=== PATIENT | female | born 1960 | race Caucasian/White ===

== ENCOUNTER 2023-05-30 10:00 | Outpatient (AMB) | payer OTHER, SELFPAY ==
--- NOTE | 2023-05-30 10:02 | MHC.PC.OV ---
Vital Signs 05/30/23 10:04 Height 5 ft 2 in Weight 141 lb 8 oz BMI 25.9 BP 128/78 Blood Pressure Location Lt brachial Position Sitting Pulse 86 Pulse Source Pulse Oximeter Pulse Oximetry (%) 98 Oxygen Delivery Method Room Air Intake Visit Reasons: Reestablish care/Asthma Intake Note: pt is here for re-establishing care, concerned about her asthma Counter Former Required: No Accompanied by: Self / Same As Patient Allergies penicillin V Allergy (Unknown, Verified 05/30/23 10:16) hives Penicillins Allergy (Unknown, Verified 05/30/23 10:16) HIVES Sulfa (Sulfonamide Antibiotics) Allergy (Unknown, Verified 05/30/23 10:16) HIVES, rash Medication List - Last Reconciled 05/30/23 by CAMILLA Mendoza No Known Home Meds Tobacco use date assessed: 05/30/23 Fall risk assessment: No Falls in past year Last assessed Fall Risk: 05/30/23 Dental Screening Dental Screen Date: 05/30/23 Did you have a dental visit in the last 12 months?: No Did you have a dental problem in the last 6 months where you did not have access to dental care?: No Was dental information given to patient?: Patient declined HPI Reestablish care/Asthma HPI Details Pt is here to reestablish care. She has a hx of asthma which is well-controlled currently. Pt would like an albuterol inhaler as needed, will send. Denies fever, chills, and chest pain. Refuses labs, mammo, pap, and colon screen. HPI Comments History of Present Illness Details asthma: pt reports it is well controlled, currently. Wanted albuterol for just in case as well as prednisone. Pt refuses mammos, colon screens, bone densities. Pt reports that she refuses any blood draws [facility] Surgical History (Updated 05/30/23 @ 10:10 by Emeterio Wu CMA) History of ankle surgery Social History (Updated 05/30/23 @ 10:11 by Emeterio Wu CMA) Housing: House Alcohol intake: current Alcohol intake frequency: does not drink Patient Tobacco Use Status: Never used Tobacco e-Cigarette/Vaping Use: Never Used service: No Current occupational status: unemployed Cognitive needs: No Hearing needs: No Vision needs: Yes Questionnaire Thrive Questionnaire Date Thrive assessed: 05/30/23 I am a: Patient What is your living situation today?: I have a steady place to live Within the past 12 months, did the food you bought not last and you didn't have the money to get more?: Never true Within the past 12 months, did you worry whether your food would run out before you got money to buy more?: Never true Do you have trouble paying for medicines?: No Do you have trouble getting transportation to medical appointments?: No Do you have trouble paying your heating and electricity bill?: No Do you have trouble taking care of your child, family member or friend?: No Do you have trouble with day-to-day activities such as bathing, preparing meals, shopping, managing finances, etc.?: No Are you currently unemployed and looking for a job?: No Are you interested in more education?: No Please select the resources that you would like help with: None Currently or been in a relationship where the following occur: no concerns reported THRIVE Score: 0 AUDIT C Alcohol Use Questionnaire (AUDIT-C) 1. How often do you have a drink containing alcohol?: Never 3. How often do you have six or more drinks on one occasion?: Never Total Score: 0 Score Reviewed/Action Taken: Yes MARTHA-7 AMB Questionnaire MARTHA-7 Date MARTHA - 7 assessed: 05/30/23 Source: Developed by Drs. Emre Hernandez, Bebe Smith, Jarred Faust and colleagues, with an educational shawn from [employer]. Review of Systems Const Reports as per HPI Physical exam (Primary Care) Vital Signs: Last Vital Signs Pulse 86 05/30/23 10:04 BP 128/78 05/30/23 10:04 Pulse Ox 98 05/30/23 10:04 Oxygen Delivery Method Room Air 05/30/23 10:04 BMI result Body Mass Index 25.9 Tobacco/Smoking Status: Tobacco use Status Tobacco use date assessed 05/30/23 05/30/23 10:14 Patient Tobacco Use Status Never used Tobacco 05/30/23 10:14 e-Cigarette/Vaping Use Never Used 05/30/23 10:14 Thrive Assessment: Date of Thrive Assessment Date Thrive assessed 05/30/23 05/30/23 10:20 Currently or been in a relationship where the following occur: no concerns reported Const General: cooperative Orientation/consciousness: patient oriented x3 Resp Effort & Inspection: normal respiratory effort Auscultation: clear to auscultation bilaterally Cardio Rate: regular rate Rhythm: regular rhythm Heart sounds: S1 normal heart sound present and S2 normal heart sound present Neuro General: patient oriented x3 Psych Appearance: grossly normal Mental Status: mental status grossly normal Speech and movement: Normal speech and movement present Affect: normal affect Attitude: cooperative Thought process: Normal thought process present Thought content: Normal thought content present Insight: Good insight present (Psych) Judgement: Good judgement present (Psych) Assessment and Plan Assessment & Plan (1) Asthma: Code(s): J45.909 - Unspecified asthma, uncomplicated Plan: sent albuterol for prn, and also prednisone for any really bad asthma attacks. Pt is hesitant to start any other meds, get any type of imaging, denies all lab draw, mammos, bone density, colon screen. Plan The patient agreed to the use of a medical records supervisor for this encounter. Scribed for QUEENIE Doherty by Lulu Mccoy medical records supervisor, on 05/30/2023 at 10:20 EST. Medications: New albuterol sulfate 90 mcg/actuation (Ventolin HFA) 2 puffs inhalation Q6H PRN 8.5 grams 1RF shortness of breath or wheezing prednisone 20 mg PO DAILY 5 days 5 tabs 1RF Coding Level of Care Code New Pt Level 3 (58258) Diagnoses Asthma J45.909
[2023-05-30 10:04] VITALS: BP 128/78; PULSE 86; O2SAT 98; BMI 25.9
== END 2023-05-30 16:17 | disposition home or self-care (01) ==
PROVIDERS: PCP Nurse Practitioner Family; Visit Provider Nurse Practitioner Family
DX: J45.909 Unspecified asthma, uncomplicated (principal)
CPT/HCPCS: 99203

== ENCOUNTER 2024-06-25 12:57 | Outpatient (AMB) | payer MEDICARE, MEDICAID, SELFPAY ==
--- NOTE | 2024-06-25 13:00 | MHC.PC.OV ---
Vital Signs 06/25/24 13:02 Height 5 ft 2 in Weight 139 lb BMI 25.4 BP 130/80 Blood Pressure Location Rt brachial Position Sitting Pulse 74 Pulse Source Pulse Oximeter Temp 97.7 F Temp Source Oral Pulse Oximetry (%) 2 L Oxygen Delivery Method Room Air Intake Visit Reasons: PE Inseminator Required: No Accompanied by: Self / Same As Patient Allergies penicillin V Allergy (Unknown, Verified 06/25/24 13:13) hives Penicillins Allergy (Unknown, Verified 06/25/24 13:13) HIVES Sulfa (Sulfonamide Antibiotics) Allergy (Unknown, Verified 06/25/24 13:13) HIVES, rash Medication List - Last Reconciled 06/25/24 by Otf Morales, [employer]- albuterol sulfate 90 mcg/actuation (Ventolin HFA) 2 puffs inhalation Q6H PRN Tobacco use date assessed: 06/25/24 Fall risk assessment: No Falls in past year Last assessed Fall Risk: 06/25/24 Dental Screening Dental Screen Date: 06/25/24 Did you have a dental visit in the last 12 months?: Yes Did you have a dental problem in the last 6 months where you did not have access to dental care?: No Was dental information given to patient?: Patient has dentist HPI PE HPI Details History of Present Illness The patient is a 64-year-old female presenting for a wellness examination. She has not been seen for over a year. The patient has a history of asthma. Although her asthma appears well-controlled with clear lung sounds and no respiratory distress, she continues to decline essential preventive screenings, including mammograms, colonoscopies, Pap smears, and routine laboratory tests. On examination, her lung sounds were clear, and auscultation revealed no carotid bruits, indicating good arterial flow in the carotid arteries. Health Maintenance - Mammography: Declined - Colonoscopy: Declined - Pap Smear: Declined - Routine Laboratory Work: Declined Social History Review of Systems - Respiratory: Denies wheezing or respiratory distress. Physical Exam General: Cooperative, healthy appearing, comfortable, no acute distress and well developed Orientation: Patient oriented x3 Limitations: No limitations Head: Normal to inspection Ears: Hearing grossly normal bilaterally Nose: Normal external nose present Face and sinus: Normal facial exam Eyes: Appearance normal, both eyes and all related structures Neck: Normal visual inspection and Yes full ROM Respiratory: Lungs are clear currently Cardiovascular: Regular rate and rhythm. Normal S1 and S2. No carotid bruits GI: Normal to inspection. Soft to palpation and nontender Skin: No rashes or lesions noted Neuro: Patient oriented x3 Extremities: Normal to inspection Results Plan The patient presented for a routine wellness examination. In light of the patient's history of asthma, a thorough examination of her respiratory and cardiovascular systems was conducted, revealing clear lung auscultation and no carotid bruits. Despite discussions, the patient opted to decline preventive screenings and laboratory tests. Current management for asthma will continue, as her condition appears stable. Follow-up has been deferred as per the patient's current decision to forgo routine health maintenance interventions. Discussion Notes The benefits and potential risks of declining these screenings were thoroughly addressed. The patient expressed a strong preference to continue abstaining from these tests. I discussed the stability of her asthma condition, evidenced by clear lungs, and confirmed the absence of carotid bruits. Despite encouragement to reconsider screening tests, the patient elected to maintain her stance, recognizing the implications of her decision. Patient Instructions - Remain attentive to any respiratory changes given your history of asthma. - If experiencing any new symptoms or concerns, seek medical attention promptly. - Maintain regular follow-ups to monitor asthma management whenever ready for reevaluation. [facility] Surgical History History of ankle surgery Social History Housing: House Alcohol intake: current Alcohol intake frequency: does not drink Patient Tobacco Use Status: Never used Tobacco e-Cigarette/Vaping Use: Never Used service: No Current occupational status: unemployed Cognitive needs: No Hearing needs: No Vision needs: Yes Questionnaire PHQ-9 Over the last 2 weeks, how often have you been bothered by any of the following problems? 1. Little interest or pleasure in doing things: not at all 2. Feeling down, depressed, or hopeless: not at all 3. Trouble falling or staying asleep, or sleeping too much: not at all 4. Feeling tired or having little energy: not at all 5. Poor appetite or overeating: not at all 6. Feeling bad about yourself - or that you are a failure or have let yourself or your family down: not at all 7. Trouble concentrating on things, such as reading the newspaper or watching television: not at all 8. Moving or speaking so slowly that other people could have noticed. Or the opposite - being so fidgety or restless that you have been moving around a lot more than usual: not at all 9. Thoughts that you would be better off or of hurting yourself in some way: not at all Total score: 0 Depression Screening Interpretation: Negative Depression Screening Done: Yes 60579 - PHQ-9 Billing: Yes Source: Developed by Drs. Emre Hernandez, Bebe Smith, Jarred Faust and colleagues, with an educational shawn from [employer]. Thrive Questionnaire Date Thrive assessed: 06/25/24 I am a: Patient What is your living situation today?: I have a steady place to live Within the past 12 months, did the food you bought not last and you didn't have the money to get more?: Never true Within the past 12 months, did you worry whether your food would run out before you got money to buy more?: Never true Do you have trouble getting transportation to medical appointments?: No Do you have trouble paying your heating and electricity bill?: No Do you have trouble taking care of your child, family member or friend?: No Do you have trouble with day-to-day activities such as bathing, preparing meals, shopping, managing finances, etc.?: No Are you currently unemployed and looking for a job?: No Are you interested in more education?: No Please select the resources that you would like help with: None Currently or been in a relationship where the following occur: No concerns reported THRIVE Score: 0 AUDIT C Alcohol Use Questionnaire (AUDIT-C) 1. How often do you have a drink containing alcohol?: Never 3. How often do you have six or more drinks on one occasion?: Never Total Score: 0 Score Reviewed/Action Taken: Yes MARTHA-7 AMB Questionnaire MARTHA-7 Date MARTHA - 7 assessed: 06/25/24 Feeling nervous, anxious, or on edge: 0 = Not at all Not being able to stop or control worryin = Not at all Worrying too much about different things: 0 = Not at all Trouble relaxin = Not at all Being so restless that it is hard to sit still: 0 = Not at all Becoming easily annoyed or irritable: 0 = Not at all Feeling afraid as if something awful might happen: 0 = Not at all Total MARTHA-7 score (0-4 normal; 5-9 mild; 10-14 moderate; 15-21 severe): 0 Source: Developed by Drs. Emre Hernandez, Bebe Smith, Jarred Faust and colleagues, with an educational shawn from [employer]. MARTHA-7 Assessment Billing MARTHA-7 Assessment Tool: MARTHA-7 Assessment 00144 Physical exam (Primary Care) Vital Signs: Last Vital Signs Temp 97.7 F 06/25/24 13:02 Pulse 74 06/25/24 13:02 BP 130/80 06/25/24 13:02 Pulse Ox 2 L 06/25/24 13:02 Oxygen Delivery Method Room Air 06/25/24 13:02 BMI result Body Mass Index 25.4 Tobacco/Smoking Status: Tobacco use Status Tobacco use date assessed 05/30/23 05/30/23 10:14 Patient Tobacco Use Status Never used Tobacco 05/30/23 10:14 e-Cigarette/Vaping Use Never Used 05/30/23 10:14 Depression Screening Interpretation: Negative Thrive Assessment: Date of Thrive Assessment Date Thrive assessed 05/30/23 05/30/23 10:20 Currently or been in a relationship where the following occur: No concerns reported Coding Level of Care Code Est Pt Prev Care >65y(78637) Diagnoses Asthma J45.909 Physical exam Z00.00 Additional Codes MARTHA-7 Assessment Billing - MARTHA-7 Assessment Tool: MARTHA-7 Assessment 38901 ([id number]) PHQ-9 - 25111 - PHQ-9 Billing: Yes ([id number]) Assessment & Plan Assessment & Plan (1) Asthma: Code(s): J45.909 - Unspecified asthma, uncomplicated Category: Medical (2) Physical exam: Code(s): Z00.00 - Encounter for general adult medical examination without abnormal findings Category: Medical Plan .
[2024-06-25 13:02] VITALS: BP 130/80; PULSE 74; TEMP 36.5; O2SAT 2; BMI 25.4
== END 2024-06-25 13:40 | disposition home or self-care (01) ==
LOC: HO.HMCC 12:58
PROVIDERS: PCP Nurse Practitioner Family; Visit Provider Nurse Practitioner Family
DX: Z00.00 Encounter for general adult medical examination without abnormal findings (principal); J45.909 Unspecified asthma, uncomplicated

== ENCOUNTER → 2024-06-25 12:57 | Outpatient (BNVA) | payer MEDICARE, MEDICAID, SELFPAY | PROVIDERS: PCP Nurse Practitioner Family; Visit Provider Nurse Practitioner Family | DX: Z00.00 Encounter for general adult medical examination without abnormal findings (principal); J45.909 Unspecified asthma, uncomplicated | CPT/HCPCS: 96127; 99397 ==